=== PATIENT | male | born 1940 | race Caucasian/White ===

== ENCOUNTER 2017-02-04 11:28 | Day surgery (SDC) | payer MEDICARE, OTHER ==
[2017-02-04] VITALS (9 sets, daily range): BP systolic 119–150; BP diastolic 46–91; PULSE 40–73; TEMP 97.7–98.4
[~2017-02-04] VITALS: Ht 177.8 cm; Wt 87.9 kg
[2017-02-04] MEDS ORDERED: TYLENOL 500MG500 MG PO (13:01)
[2017-02-04] MEDS ORDERED: ASPIRIN E.C. 8181 MG PO (13:02)
[2017-02-04] MEDS ORDERED: FLOMAX 0.40.4 MG/CAP PO (13:03)
[2017-02-04] MEDS ORDERED: PROSCAR 5MG5 MG PO (13:03)
[2017-02-04] MEDS ORDERED: FOLIC ACID 11 MG/TA1 PO (13:04)
[2017-02-04] MEDS ORDERED: ADALAT CC60 MG PO (13:04)
[2017-02-04] MEDS ORDERED: EPA FISH OIL1 SGL PO (13:05)
[2017-02-05 04:33] VITALS: BP 137/57; PULSE 71; TEMP 98.5
[2017-02-05 07:53] LABS: HEMATOCRIT 39.5 % (42.0-52.0); HEMOGLOBIN 13.2 g/dl (13.5-18.0); MEAN CELL VOLUME 93 fl (80.0-100.0); MEAN CORPUSCULAR HEMOGLOBIN 31 pg (27.0-31.0); MEAN CORPUSCULAR HGB CONC 33 g/dl (33.0-37.0); MEAN PLATELET VOLUME 10.9 fl (7.4-10.4); PLATELET COUNT 230 K/mm3 (130-400); RED BLOOD COUNT 4.24 M/mm3 (4.20-5.60); REDCELL DISTRIBUTION WIDTH-CV 13.9 % (11.5-14.5); WHITE BLOOD COUNT 11.4 K/mm3 (4.8-10.8)
[2017-02-05 09:36] VITALS: BP 115/41; PULSE 73; TEMP 98.3
[2017-02-05 14:05] VITALS: BP 122/53; PULSE 93; TEMP 98.2
[2017-02-05 17:10] VITALS: BP 106/48; PULSE 57; TEMP 97.8
[2017-02-05 22:00] VITALS: BP 112/54; PULSE 64; TEMP 98.3
[2017-02-06 05:27] VITALS: BP 138/71; PULSE 64; TEMP 99.2
[2017-02-06 09:50] VITALS: BP 126/86; PULSE 64; TEMP 97.4
[2017-02-06 13:49] VITALS: BP 96/46; PULSE 60; TEMP 98
== END 2017-02-06 15:00 | disposition home or self-care (01) ==
LOC: SDCO 11:28 → SURG 18:05 → SDCO 02-06 15:00
PROVIDERS: Urology
DX: N40.1 Benign prostatic hyperplasia with lower urinary tract symptoms (principal); N39.44 Nocturnal enuresis; N39.41 Urge incontinence; K21.9 Gastro-esophageal reflux disease without esophagitis; I10 Essential (primary) hypertension; E78.00 Pure hypercholesterolemia, unspecified; Z79.82 Long term (current) use of aspirin; Z79.899 Other long term (current) drug therapy
CPT/HCPCS: OP; J0690; J2250; J2704; J7120